=== PATIENT | male | born 2005 | race Caucasian/White ===

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

== ENCOUNTER 2025-09-14 01:24 | Emergency (ER) | payer OTHER ==
[~2025-09-14] VITALS: Ht 177.8 cm; Wt 71.7 kg
[2025-09-14] MEDS ORDERED: XARELTO10 MG PO (02:00)
[2025-09-14] MEDS ORDERED: 0.9 % SODIUM CHLORIDE 1,000 ML IV STA (02:42)
[2025-09-14] MEDS ORDERED: ONDANSETRON HCL 2 MG/ML VIAL IV STA (02:43)
[2025-09-14] MEDS ORDERED: FAMOTIDINE/PF 20 MG/2 ML VIAL IV STA (02:43)
[2025-09-14] MEDS ORDERED: DEXAMETHASONE 4 MG TABLET PO STA (02:56)
[2025-09-14] MEDS ORDERED: KETOROLAC TROMETHAMINE 30 MG VIAL IU STA ×2 (02:57→07:24)
[2025-09-14] MEDS ORDERED: KETOROLAC TROMETHAMINE 30 MG VIAL ONE ×2 (03:08→07:42)
[2025-09-14] MEDS ORDERED: DEXAMETHASONE SODIUM PHOSPHATE 4 MG/ML VIAL ONE (03:12)
[2025-09-14 04:05] LABS: BASO % 0.5 % (0.1-1.2); EOS # 0.18 (0.04-0.54); EOS % 2.9 % (0.7-7.0); LYMPH # 2.73 (1.18-3.74); LYMPH % 44.5 % (19.3-53.1); MEAN PLATELET VOLUME 11.40 fl (9.4-12.4); MONO # 0.63 (0.24-0.82); MONO % 10.3 % (4.7-12.5); NEUT # 2.56 (1.56-6.13); NEUT % 41.6 % (34.0-71.1); RED CELL DISTRIBUTION WIDTH 13.5 % (11.6-14.4)
[2025-09-14 04:12] LABS: ALT/SGPT 24 U/L (12-78); AST/SGOT 25 U/L (15-37); BILIRUBIN TOTAL 0.53 mg/dL (0.3-1.2); BUN CREA RATIO 10 (7.0-25.0); CREATININE SERUM 1.34 mg/dL (0.70-1.30); GFR 66.66; GLOBULINA 3.1 G/DL (2.4-3.5); GLUCOSE FASTING 106 mg/dL (65-100); OSMOLALITY SERUM 286 MOSM/KG (275-295)
[2025-09-14 05:29] LABS: ERYTHROCYTE SEDIMENTATION RATE < 1 mm/hr (0-15)
[2025-09-14 06:54] LABS: URINE APPEARANCE Clear; URINE BILIRRUBIN Negative (NEGATIVE); URINE BLOOD Negative; URINE COLOR Yellow; URINE GLUCOSE Negative (NEGATIVE); URINE KETONE Trace (NEGATIVE); URINE LEUKOCYTE Small; URINE NITRATE Negative; URINE PROTEIN Negative (NEGATIVE); URINE UROBILINOGEN 0.2 E.U./dl
[2025-09-14 06:57] LABS: URINE EPITHELIAL CELLS 1.6 uL (0.0-38.8)
[2025-09-14 07:06] LABS: URINE BACTERIA 3.5 uL (0.0-1933); URINE CAST 0.14 uL (0.0-1.40); URINE RBC 1.4 uL (0.0-20.8); URINE WBC 1.6 uL (0.0-23.2)
[2025-09-14] MEDS ORDERED: CEFTRIAXONE SODIUM 2,000 MG VIAL IV STA (07:24)
[2025-09-14] MEDS ORDERED: TAMSULOSIN HCL 0.4 MG CAP PO STA (07:24)
[2025-09-14] MEDS ORDERED: CIPRO500 MG PO (07:26)
[2025-09-14] MEDS ORDERED: TAMSULOSIN HCL 0.4 MG CAP PO ONE (07:42)
[2025-09-14] MEDS ORDERED: CEFTRIAXONE SODIUM 2,000 MG VIAL ONE (07:43)
[2025-09-14 09:17] VITALS: BP 130/80; O2SAT 100
== END 2025-09-14 09:18 | disposition home or self-care (01) ==
LOC: ER 01:25
PROVIDERS: Physician Assistant Medical
DX: N39.0 Urinary tract infection, site not specified (principal); N50.812 Left testicular pain; N50.811 Right testicular pain; Z88.8 Allergy status to other drugs, medicaments and biological substances